=== PATIENT | female | born 2000 | race American Indian/Alaskan Native ===

== ENCOUNTER 2022-03-24 14:22 | Inpatient (IN) | payer MEDICAID ==
[2022-03-24] MEDS ORDERED: MINERAL OIL 30 ML ORAL LIQD PO PRN (16:28)
[2022-03-24] MEDS ORDERED: miSOPROStol 200 MCG TAB PR PRN (16:28)
[2022-03-24] MEDS ORDERED: TERBUTALINE 1 MG/1 ML INJ SUB-Q PRN (16:28)
[2022-03-24] MEDS ORDERED: NalbUPHINE 10 MG/1 ML INJ IV PRN (16:28)
[2022-03-24] MEDS ORDERED: ONDANSETRON 4 MG/2 ML INJ IV PRN ×2 (16:28→19:38)
[2022-03-24] MEDS ORDERED: METHYLERGONOVINE MALEATE 0.2 MG/ML VIAL IM PRN (16:28)
[2022-03-24] MEDS ORDERED: PROMETHAZINE 25 MG TAB PO PRN ×2 (16:28→19:38)
[2022-03-24] MEDS ORDERED: OXYTOCIN 10 UNIT/1 ML INJ IM PRN (16:28)
[2022-03-24] MEDS ORDERED: LOPERAMIDE 2 MG CAP PO PRN (16:28)
[2022-03-24] MEDS ORDERED: LACTATED RINGERS 1,000 ML ONE (16:30)
[2022-03-24] MEDS: LACTATED RINGERS 1,000 ML IV SCH ×2 (16:35→17:41)
[2022-03-24 16:40] LABS: Bacteria,Urine 2+ /HPF (Negative); Bilirubin,Urine NEG (Negative); Blood,Urine NEG (Negative); Color,Urine Yellow (Yellow); Mucus,Urine 1+ /HPF
[2022-03-24 16:45] LABS: Hematocrit 33.3 % (30.3-42.9); Hemoglobin 10.6 gm/dl (10.1-14.3); Mean Corpuscular HGB Conc 32 % (30-34); Mean Corpuscular Volume 76 fl (79-97); Platelet Count 165 K/mm3 (140-440); Red Cell Distribution Width 17.4 % (13.2-15.2)
[2022-03-24] MEDS: fentaNYL 100 MCG/2 ML INJ IV PRN ×2 (16:51→19:23)
[2022-03-24] MEDS ORDERED: PENICILLIN G POTASSIUM 5 MIL.UNITS in SODIUM CHLORIDE 0.9% 50 ML IV ONE (17:00)
[2022-03-24] MEDS ORDERED: CARBOPROST TROMETHAMINE 250 MCG/1 ML INJ IM PRN (17:00)
[2022-03-24] MEDS ORDERED: OXYTOCIN DRIP 30 UNITS/500 ML BAG IV SCH (17:00)
[2022-03-24] MEDS ORDERED: ACETAMINOPHEN 325 MG TAB PO PRN ×2 (17:00→19:38)
[2022-03-24] MEDS ORDERED: ePHEDrine SULFATE 50 MG/1 ML INJ IV PRN ×2 (17:00→18:34)
[2022-03-24] MEDS ORDERED: BUPIVACAINE/PF (0.25%) 2.5 MG/ML 10 ML VIAL INFILTRATI ONE (17:35)
[2022-03-24] MEDS ORDERED: LIDOCAINE (2%) 20 MG/1 ML VIAL 20 ML MDV INFILTRATI ONE (18:00)
--- NOTE | 2022-03-24 18:14 | Progress Note ---
Labor Epidural - Labor Epidural Start Time: 17:42 Stop Time: 17:55 Performed by:: Lo Hall Procedure: Patient is requesting epidural for labor and pain. H&P, labs were reviewed. Patient IDed, all questions and concerns were answered, and consent was signed. Timeout was performed at bedside. Patient in sitting position. Sterile prep and drape was performed. 3ml of 1% lidocaine skin wheal at L[3]- L [4]. 17- gauge Tuohy epidural needle was advanced to loss of resistance with air technique 5 cm. Negative CSF negative blood. Epidural catheter advanced to [12] centimeters. [negative] Aspiration [negative] test dose. Sterile dressing applied. Patient tolerated procedure.
--- NOTE | 2022-03-24 18:15 | Anesthesia Consultation ---
Anesthesia Consult and Med Hx Date of service: 03/24/22 - Airway Anesthetic Teeth Evaluation: Good ROM Head & Neck: Adequate Mental/Hyoid Distance: Adequate - Pre-Operative Health Status ASA Pre-Surgery Classification: ASA2 Proposed Anesthetic Plan: Epidural - Pulmonary Hx Smoking: No Hx Asthma: No COPD: No Hx Pneumonia: No Hx Sleep Apnea: No - Cardiovascular System Hx Hypertension: No Hx Coronary Artery Disease: No - Central Nervous System Hx Seizures: No CVA: No Hx Psychiatric Problems: No - Endocrine Hx Renal Disease: No Hx Liver Disease: No Hx Non-Insulin Dependent Diabetes: No Hx Thyroid Disease: No - Hematic Hx Anemia: No Hx Sickle Cell Disease: No - Other Systems Hx Alcohol Use: No Hx Substance Use: No Hx Cancer: No Hx Obesity: No
[2022-03-24] MEDS ORDERED: NALOXONE 0.4 MG/1 ML INJ IV PRN (18:34)
[2022-03-24] MEDS ORDERED: MAGNESIUM HYDROXIDE (MOM) ORAL LIQD UDC PO PRN (19:38)
[2022-03-24] MEDS ORDERED: oxyCODONE /ACETAMINOPHEN 5-325MG TAB PO PRN (19:38)
[2022-03-24] MEDS ORDERED: WITCH HAZEL/ GLYCERIN PAD TP PRN (19:38)
[2022-03-24] MEDS ORDERED: LANOLIN/ZINC/DIMETHICONE (LANSINOH) 7 GM TP PRN (19:38)
[2022-03-24] MEDS ORDERED: PROMETHAZINE 25 MG RECT SUPP PR PRN (19:38)
[2022-03-24] MEDS ORDERED: diphenhydrAMINE 25 MG CAP PO PRN (19:38)
--- NOTE | 2022-03-24 19:54 | Procedure Note ---
OB Delivery Note - Delivery Date of Delivery: 03/24/22 Surgeon: WILMA DE PAZ Estimated blood loss: other (150) - Vaginal Delivery presentation: vertex Delivery position: OA Intrapartum events: none Delivery induction: none Delivery monitor: external FHT Route of delivery: Delivery placenta: spontaneous Delivery cord: 3 umbilical vessels Episiotomy: none Delivery laceration: 2nd degree (midline vaginal / perineal) Delivery repair: chromic (2.0) Anesthesia: epidural Delivery comments: Patient of [facility] admitted for labor at 38 wks gestation. . She received an Epidural, became complete with bulging bag of water at perineum. SROM with light meconium noted. VE: C/+1. She had a of viable baby girl (Amoura), over intact perineum. Placenta delivered spontaneously. FFBU with minimal bleeding. She has a 2nd degree midline vaginal and perineal laceration which was repaired with 2.0 chromic. QBL 150ml. Both mother and are doing well. - Infant A Gender: Female
--- NOTE | 2022-03-24 19:59 | History and Physical Report ---
History of Present Illness Date of examination: 03/24/22 Date of admission: 03/24/22 16:29 Chief complaint: labor History of present illness: laboring Past History Past Medical History: no pertinent history Past Surgical History: no surgical history - Obstetrical History Expected Date of Delivery: 04/07/22 Actual Gestation: 38 Week(s) 0 Day(s) : 2 Para: 1 Hx # Term Pregnancies: 1 Number of Living Children: 1 #1 year: Method of Delivery: Vaginal Complications: none Medications and Allergies Allergies Allergy/AdvReac Type Severity Reaction Status Date / Time No Known Allergies Allergy Verified 03/24/22 14:59 Home Medications Medication Instructions Recorded Confirmed Last Taken Type No Known Home Medications [No 03/24/22 03/24/22 Unknown History Reported Home Medications] Active Meds: Active Medications Acetaminophen (Acetaminophen 325 Mg Tab) 650 mg PO Q4H PRN PRN Reason: Pain, Mild (1-3) Acetaminophen (Acetaminophen 325 Mg Tab) 650 mg PO Q4H PRN PRN Reason: Pain MILD(1-3)/Fever >100.5/ANTHONY Bisacodyl (Bisacodyl 10 Mg Rect Supp) 10 mg VA BID PRN PRN Reason: Constipation Carboprost Tromethamine (Carboprost Tromethamine 250 Mcg/1 Ml Inj) 250 mcg IM ONCE PRN PRN Reason: Uterine Bleeding Diphenhydramine HCl (Diphenhydramine 25 Mg Cap) 25 mg PO Q6H PRN PRN Reason: Itching Docusate Sodium (Docusate Sodium 100 Mg Cap) 100 mg PO BID DELORES Ephedrine Sulfate (Ephedrine Sulfate 50 Mg/1 Ml Inj) 10 mg IV Q2M PRN PRN Reason: Hypotension Fentanyl (Fentanyl 100 Mcg/2 Ml Inj) 100 mcg IV Q2H PRN PRN Reason: Pain,Severe (7-10) LABOR PAIN Last Admin: 03/24/22 19:23 Dose: 100 mcg Lactated Ringer's (Lactated Ringers) 1,000 mls @ 125 mls/hr IV DIRECT DELORES Last Admin: 03/24/22 17:41 Dose: 999 mls/hr Oxytocin/Sodium Chloride (Pitocin/Ns 30 Unit/500ml) 30 units in 500 mls @ 40 mls/hr IV TITR DELORES; Protocol Last Admin: 03/24/22 19:08 Dose: 40 mls/hr, 40 mls/hr Fentanyl/Bupivacaine/Sodium Chlor (Fentanyl-Bupiv 2 Mcg/Ml-0.125%) 200 mcg in 100 mls @ 12 mls/hr EPIDURAL TITR DELORES; Protocol Ibuprofen (Ibuprofen 600 Mg Tab) 600 mg PO Q6H DELORES Loperamide HCl (Loperamide 2 Mg Cap) 2 mg PO ONCE PRN PRN Reason: give with Hemabate Magnesium Hydroxide (Magnesium Hydroxide (Mom) Oral Liqd Udc) 30 ml PO HS PRN PRN Reason: Constipation Methylergonovine Maleate (Methylergonovine Maleate 0.2 Mg/Ml Vial) 0.2 mg IM ONCE PRN PRN Reason: Uterine Bleeding Mineral Oil (Mineral Oil 30 Ml Oral Liqd) 30 ml PO QHS PRN PRN Reason: Constipation Misoprostol (Misoprostol 200 Mcg Tab) 800 mcg VA ONCE PRN PRN Reason: Uterine Bleeding Multi-Ingredient Ointment (Lanolin/Zinc/Dimethicone (Lansinoh) 7 Gm) 1 applic TP PRN PRN PRN Reason: Sore Nipples Nalbuphine HCl (Nalbuphine 10 Mg/1 Ml Inj) 10 mg IV Q2H PRN PRN Reason: Pain, Moderate (4-6) Naloxone HCl (Naloxone 0.4 Mg/1 Ml Inj) 0.2 mg IV Q5MIN PRN PRN Reason: Respiratory sedation Ondansetron HCl (Ondansetron 4 Mg/2 Ml Inj) 4 mg IV Q8H PRN PRN Reason: Nausea And Vomiting Ondansetron HCl (Ondansetron 4 Mg/2 Ml Inj) 4 mg IV Q8H PRN PRN Reason: Nausea And Vomiting Oxycodone/Acetaminophen (Oxycodone /Acetaminophen 5-325mg Tab) 1 tab PO Q6H PRN PRN Reason: Pain, Moderate (4-6) Oxytocin (Oxytocin 10 Unit/1 Ml Inj) 10 unit IM ONCE PRN PRN Reason: Uterine Bleeding Promethazine HCl (Promethazine 25 Mg Tab) 25 mg PO Q6H PRN PRN Reason: Nausea And Vomiting Promethazine HCl (Promethazine 25 Mg Rect Supp) 25 mg VA Q6H PRN PRN Reason: Nausea And Vomiting Promethazine HCl (Promethazine 25 Mg Tab) 25 mg PO Q6H PRN PRN Reason: Nausea And Vomiting Senna/Docusate Sodium (Sennosides/Docusate Sodium 8.6/50 Mg Tab) 2 tab PO Q12H DELORES Sodium Chloride (Sodium Chloride 0.9% 10 Ml Flush Syringe) 10 ml IV PRN NR Terbutaline Sulfate (Terbutaline 1 Mg/1 Ml Inj) 0.25 mg SUB-Q ONCE PRN PRN Reason: Hyperstimulation/Hypertonicity Witch Serina/Glycerin (Witch Serina/ Glycerin Pad) 1 each TP PRN PRN PRN Reason: Hemorrhoid/cleansing/soothing Review of Systems Eyes: deferred Ears, nose, mouth and throat: deferred Breasts: deferred Genitourinary: deferred Rectal Exam: deferred Integumentary: deferred - Vital Signs Vital signs: Vital Signs Pulse Pulse Ox 102 H 99 03/24/22 14:56 03/24/22 14:56 Temp Pulse Resp BP Pulse Ox 98 F 100 H 20 109/66 100 03/24/22 18:25 03/24/22 19:49 03/24/22 18:25 03/24/22 19:33 03/24/22 19:49 - Physical Exam Breasts: Positive: deferred Cardiovascular: Regular rate Abdomen: Positive: other (gravid) Genitourinary (Female): Positive: normal external genitalia Vulva: both: normal Vagina: Positive: normal moisture Anus/Rectum: Positive: normal perianal skin Extremities: Positive: normal - Obstetrical FHR: category 1 Uterine Contraction Monitor Mode: External Cervical Dilatation: 6 (done by Dr. Grayson) Uterine Contraction Pattern: Regular Uterine Contraction Intensity: Strong/Firm Results Result Diagrams: 03/24/22 Unknown Abnormal lab results 03/24/22 03/24/22 Range/Units Unknown Unknown MCV 76 L (79-97) fl MCH 24 L (28-32) pg RDW 17.4 H (13.2-15.2) % U Epithel Cells (Auto) 35.0 H (0-13.0) /HPF All other labs normal. Assessment and Plan A: at 38 wks laboring unknown GBS minimal record avail P: Admit pain management, epidural if desired antibiotic prophylactic for unknown GBS
[2022-03-24] MEDS ORDERED: fentaNYL-BUPIV 2 MCG/ML-0.125% 200 MCG/100 ML BAG EPIDURAL SCH (20:00)
[2022-03-24] MEDS: IBUPROFEN 600 MG TAB PO SCH (20:28)
[2022-03-24] MEDS: DOCUSATE SODIUM 100 MG CAP PO SCH (23:55)
[2022-03-25] MEDS: IBUPROFEN 600 MG TAB PO SCH ×4 (02:04→19:01)
[2022-03-25 08:09] LABS: Hematocrit 27.5 % (30.3-42.9); Hemoglobin 9.1 gm/dl (10.1-14.3)
[2022-03-25] MEDS: SENNOSIDES/DOCUSATE SODIUM 8.6/50 MG TAB PO SCH ×2 (10:39→22:04)
[2022-03-25] MEDS: DOCUSATE SODIUM 100 MG CAP PO SCH ×2 (10:58→22:04)
[2022-03-25] MEDS: NITROFURANTOIN MONOHYD/M-CRYST 100 MG CAP PO SCH ×2 (14:17→22:04)
--- NOTE | 2022-03-25 15:13 | Progress Note ---
Assessment and Plan PPD#1 with asymptomatic anemia and UTI 1. Routine PP care 2. Pt told that she has UTI based on urine dip and culture pending; linbigorge s cript given All questions encouraged and answered Subjective Date of service: 03/25/22 Principal diagnosis: PPD#1 Interval history: Pt has no complaints. However when asked after I saw urinalysis results in computer, Pt admits to frequent urination and lower pelvic pain. Pt states vag bleed less than a period. pt is breast feeding. Denies fever or chills Objective - Constitutional Vitals: Vital Signs - 12hr 03/25/22 03/25/22 03/25/22 05:04 05:31 06:31 Temperature 98.3 F Pulse Rate 86 Respiratory 18 18 18 Rate Blood Pressure 98/58 O2 Sat by Pulse 99 Oximetry O2 Sat by Pulse Oximetry [ Bilateral Throughout] 03/25/22 03/25/22 03/25/22 07:28 08:15 11:23 Temperature 98.4 F 98.5 F Pulse Rate 74 93 H Respiratory 18 18 Rate Blood Pressure 99/57 103/55 O2 Sat by Pulse 99 100 Oximetry O2 Sat by Pulse 98 Oximetry [ Bilateral Throughout] General appearance: Present: no acute distress - Neck Neck: normal ROM - Respiratory Respiratory effort: normal - Breasts Breasts: deferred - Cardiovascular Rhythm: regular Extremities: No edema - Gastrointestinal General gastrointestinal: Present: soft, non-tender - Genitourinary Female genitourinary: other (fundus firm, 1cm below umbilicus and non-tender; ) - Integumentary Integumentary: warm, dry - Neurologic Neurologic: moves all extremities - Psychiatric Psychiatric: cooperative - Labs CBC & Chem 7: 03/25/22 07:17 Labs: Abnormal lab results 03/24/22 03/24/22 03/25/22 Range/Units Unknown Unknown 07:17 Hgb 9.1 L (10.1-14.3) gm/dl Hct 27.5 L (30.3-42.9) % MCV 76 L (79-97) fl MCH 24 L (28-32) pg RDW 17.4 H (13.2-15.2) % U Epithel Cells (Auto) 35.0 H (0-13.0) /HPF Medications & Allergies - Medications Allergies/Adverse Reactions: Allergies No Known Allergies Allergy (Verified 03/25/22 08:15) Home Medications: Home Medications Medication Instructions Recorded Confirmed Last Taken Type No Known Home Medications [No 03/24/22 03/24/22 Unknown History Reported Home Medications] Active Medications: Generic Name Dose Route Start Last Admin Trade Name Freq PRN Reason Stop Dose Admin Acetaminophen 650 mg 03/24/22 17:00 Acetaminophen 325 Mg Tab PO Q4H PRN Pain, Mild (1-3) Bisacodyl 10 mg 03/24/22 19:38 Bisacodyl 10 Mg Rect Supp TN BID PRN Constipation Carboprost Tromethamine 250 mcg 03/24/22 17:00 Carboprost Tromethamine 250 Mcg/1 Ml Inj IM ONCE PRN Uterine Bleeding Diphenhydramine HCl 25 mg 03/24/22 19:38 Diphenhydramine 25 Mg Cap PO Q6H PRN Itching Docusate Sodium 100 mg 03/24/22 22:00 03/25/22 10:58 Docusate Sodium 100 Mg Cap PO 100 mg BID DELORES Administration Ephedrine Sulfate 10 mg 03/24/22 18:34 Ephedrine Sulfate 50 Mg/1 Ml Inj IV Q2M PRN Hypotension Fentanyl 100 mcg 03/24/22 17:00 03/24/22 19:23 Fentanyl 100 Mcg/2 Ml Inj IV 100 mcg Q2H PRN Administration Pain,Severe (7-10) LABOR PAIN Lactated Ringer's 1,000 mls @ 125 mls/hr 03/24/22 17:00 03/24/22 17:41 Lactated Ringers IV 999 mls/hr DIRECT DELORES Administration Oxytocin/Sodium Chloride 30 units in 500 mls @ 40 mls/hr 03/24/22 17:00 03/24/22 19:08 Pitocin/Ns 30 Unit/500ml IV 40 mls/hr TITR DELORES 40 mls/hr Administration Protocol Fentanyl/Bupivacaine/Sodium Chlor 200 mcg in 100 mls @ 12 mls/hr 03/24/22 20:00 Fentanyl-Bupiv 2 Mcg/Ml-0.125% EPIDURAL TITR DELORES Protocol Ibuprofen 600 mg 03/24/22 20:00 03/25/22 10:59 Ibuprofen 600 Mg Tab PO 600 mg Q6H DELORES Administration Loperamide HCl 2 mg 03/24/22 16:28 Loperamide 2 Mg Cap PO ONCE PRN give with Hemabate Magnesium Hydroxide 30 ml 03/24/22 19:38 Magnesium Hydroxide (Mom) Oral Liqd Udc PO HS PRN Constipation Methylergonovine Maleate 0.2 mg 03/24/22 16:28 Methylergonovine Maleate 0.2 Mg/Ml Vial IM ONCE PRN Uterine Bleeding Mineral Oil 30 ml 03/24/22 16:28 Mineral Oil 30 Ml Oral Liqd PO QHS PRN Constipation Misoprostol 800 mcg 03/24/22 16:28 Misoprostol 200 Mcg Tab TN ONCE PRN Uterine Bleeding Multi-Ingredient Ointment 1 applic 03/24/22 19:38 Lanolin/Zinc/Dimethicone (Lansinoh) 7 Gm TP PRN PRN Sore Nipples Nalbuphine HCl 10 mg 03/24/22 16:28 Nalbuphine 10 Mg/1 Ml Inj IV Q2H PRN Pain, Moderate (4-6) Naloxone HCl 0.2 mg 03/24/22 18:34 Naloxone 0.4 Mg/1 Ml Inj IV Q5MIN PRN Respiratory sedation Nitrofurantoin Macrocrystals 100 mg 03/25/22 12:30 03/25/22 14:17 Nitrofurantoin Monohyd/M-Cryst 100 Mg Cap PO 100 mg Q12HR DELORES Administration Ondansetron HCl 4 mg 03/24/22 19:38 Ondansetron 4 Mg/2 Ml Inj IV Q8H PRN Nausea And Vomiting Oxycodone/Acetaminophen 1 tab 03/24/22 19:38 03/24/22 23:55 Oxycodone /Acetaminophen 5-325mg Tab PO 1 tab Q6H PRN Administration Pain, Moderate (4-6) Oxytocin 10 unit 03/24/22 16:28 Oxytocin 10 Unit/1 Ml Inj IM ONCE PRN Uterine Bleeding Promethazine HCl 25 mg 03/24/22 19:38 Promethazine 25 Mg Rect Supp TN Q6H PRN Nausea And Vomiting Promethazine HCl 25 mg 03/24/22 19:38 Promethazine 25 Mg Tab PO Q6H PRN Nausea And Vomiting Senna/Docusate Sodium 2 tab 03/24/22 20:00 03/25/22 10:39 Sennosides/Docusate Sodium 8.6/50 Mg Tab PO Not Given Q12H DELORES Terbutaline Sulfate 0.25 mg 03/24/22 16:28 Terbutaline 1 Mg/1 Ml Inj SUB-Q ONCE PRN Hyperstimulation/Hypertonicity Witch Serina/Glycerin 1 each 03/24/22 19:38 03/24/22 23:56 Witch Serina/ Glycerin Pad TP 1 each PRN PRN Administration Hemorrhoid/cleansing/soothing
[2022-03-26] MEDS: IBUPROFEN 600 MG TAB PO SCH (06:37)
--- NOTE | 2022-03-26 08:33 | Discharge Summary ---
Providers - Providers Date of Admission: 03/24/22 16:29 Date of discharge: 03/26/22 Attending physician: EYAD LANZA Primary care physician: EYAD LANZA Hospitalization Reason for admission: active labor Delivery: Laceration: 2nd degree Discharge diagnosis: IUP at term delivered baby: female Condition at discharge: Good Disposition: 01 HOME / SELF CARE / HOMELESS Plan - Discharge Medications Prescriptions: Nitrofurantoin [place]/M-Cryst [Macrobid CAP] 100 mg PO Q12HR 5 Days #10 capsule - Provider Discharge Summary Activity: routine Additional instructions: [] Smoking cessation referral if applicable(refer to patient education folder for contact #) [] Refer to [facility] Booklet Call your doctor immediately for: * Fever > 100.5 * Heavy vaginal bleeding ( >1 pad per hour) * Severe persistent headache * Shortness of breath * Reddened, hot, painful area to leg or breast * Drainage or odor from incision. * Keep incision clean and dry at all times and follow doctor's instructions regarding bathing/showering - Follow up plan Follow up: EYAD LANZA MD [Primary Care Provider] - 6 Weeks
--- NOTE | 2022-03-26 08:33 | Progress Note ---
Assessment and Plan A: PPD # 2 -stable P: Discharge home today Discharge instructions given Subjective - Subjective Date of service: 03/26/22 Principal diagnosis: PPD#2 Patient reports: appetite normal [place]: doing well Objective - Vital Signs Latest vital signs: Vital Signs Temp Pulse Resp BP Pulse Ox Pulse Ox 03/26/22 01:22 98.0 F 77 20 112/79 100 03/25/22 22:00 98 03/25/22 16:10 98.1 F 75 18 98/56 99 03/25/22 11:23 98.5 F 93 H 18 103/55 100 Intake and Output 03/25/22 03/26/22 03/26/22 22:59 06:59 14:59 Intake Total 600 240 Balance 600 240 Intake: Oral 360 240 Intake, Free Water 240 Other: Total, Intake Amount 360 240 # Voids Void 2 1 - Exam Breasts: Present: deferred Cardiovascular: Present: Regular rate Lungs: Present: Clear to auscultation Abdomen: Present: soft Uterus: Present: fundal height below umbilicus Extremities: Present: normal Deep Tendon Reflex Grade: Normal +2
[2022-03-26] MEDS: SENNOSIDES/DOCUSATE SODIUM 8.6/50 MG TAB PO SCH (10:54)
[2022-03-26] MEDS: NITROFURANTOIN MONOHYD/M-CRYST 100 MG CAP PO SCH (10:55)
[2022-03-26] MEDS: DOCUSATE SODIUM 100 MG CAP PO SCH (10:55)
[2022-03-26 15:42] VITALS: BP 102/62
== END 2022-03-26 12:55 | disposition home or self-care (01) | DRG 775 ==
LOC: TRG 14:22 → APU 14:23 → LD 16:19 → TRG 16:43 → OB 22:48
PROVIDERS: ADMIT Obstetrics & Gynecology; ATTEND Obstetrics & Gynecology
PROC: 10E0XZZ Delivery of Products of Conception, External Approach (ICD-10-PCS; principal; 2022-03-24)
PROC: 0HQ9XZZ Repair Perineum Skin, External Approach (ICD-10-PCS; 2022-03-24)
PROC: 3E0R3BZ Introduction of Anesthetic Agent into Spinal Canal, Percutaneous Approach (ICD-10-PCS; 2022-03-24)
PROC: 00HU33Z Insertion of Infusion Device into Spinal Canal, Percutaneous Approach (ICD-10-PCS; 2022-03-24)
DX: O77.0 Labor and delivery complicated by meconium in amniotic fluid (principal); Z20.822 Contact with and (suspected) exposure to COVID-19; O70.1 Second degree perineal laceration during delivery; Z3A.38 38 weeks gestation of pregnancy; Z37.0 Single live birth; O90.81 Anemia of the puerperium; O86.20 Urinary tract infection following delivery, unspecified; N39.0 Urinary tract infection, site not specified
CPT/HCPCS: 36415; 81001; 85014; 85018; 85027; 86592; 86706; 86762; 86850; 86900; 86901; 88307; 99211; G0378; G0463; J2540; J2590; J3010; J7120; U0003